=== PATIENT | female | born 1990 | race Caucasian/White ===

== ENCOUNTER 2020-08-06 07:37 | Outpatient (RCR) | payer OTHER, SELFPAY ==
--- NOTE | 2020-08-06 19:17 | P.PNPSP_ITS ---
Subjective Subjective Date of Service: 08/06/20 Reason For Visit: depression Interim History: Pt reports she has been doing very well. Anxiety sx well managed with current regimen. Medication Compliance: Yes Side effects from medications: No Review of Systems Review of Systems Yes all other systems are reviewed and are negative Mental Status Exam Mental Status Exam Patient Appearance: Well Grooomed and Appropriate Level of Consciousness: Awake, Appropriate and Alert Patient Behavior: Appropriate and Cooperative Mood Description: Calm Affect Description: Calm and Happy Ability to Follow Directions: Excellent Speech Pattern: Clear Thought Process: Intact Thought Content: positive for Intact Judgement: Good Assessment & Plan Assessment & Plan (1) Generalized anxiety disorder with panic attacks: Status: Acute Code(s): F41.1 - Generalized anxiety disorder; F41.0 - Panic disorder [episodic parox ysmal anxiety] Assessment and Plan: no change to regimen plan to transition care to PCP, though she has new PCP she will nto be meeting until December Greater than 50% of the session was spent on counseling and/or coordination of care Discharge Plan Discharge Attending provider: Lisandra Last
== END 2020-10-04 23:55 | disposition home or self-care (01) ==
LOC: HO.PAOS 07:37
PROVIDERS: Visit Provider Nurse Practitioner Psychiatric/Mental Health
DX: F41.1 Generalized anxiety disorder (principal); F41.0 Panic disorder [episodic paroxysmal anxiety]

== ENCOUNTER 2020-09-10 17:00 | Outpatient (RCR) | payer OTHER, SELFPAY | END 2020-09-13 23:55 | disposition home or self-care (01) | LOC: HO.PAOS 17:00 | PROVIDERS: Visit Provider Counselor Mental Health | DX: F42.9 Obsessive-compulsive disorder, unspecified (principal); F41.0 Panic disorder [episodic paroxysmal anxiety] | CPT/HCPCS: 90834 ==